=== PATIENT | female | born 1945 | race Two or more races ===

== ENCOUNTER 2018-09-27 19:50 | Emergency (ER) | payer OTHER ==
[~2018-09-27] VITALS: Ht 154.9 cm; Wt 73.5 kg
[~2018-09-27 19:50] MED LIST: SURFAK240 M1 PO; ULTRACET PO
[2018-09-27] MEDS ORDERED: TOPROL XL25 M1 PO (20:20)
[2018-09-27] MEDS ORDERED: COZAAR25 MG PO (20:20)
[2018-09-27] MEDS ORDERED: FORTAMET500 MG PO (20:20)
[2018-09-27] MEDS ORDERED: FOLIC ACID1 MG PO (20:21)
[2018-09-27] MEDS ORDERED: ZOCOR20 MG PO (20:21)
== END 2018-09-27 22:50 | disposition home or self-care (01) ==
LOC: ER 19:50
DX: M54.5 Low back pain (principal)

== ENCOUNTER 2020-09-08 09:38 | Day surgery (SDC) | payer OTHER ==
[~2020-09-08 09:38] MED LIST changes: +COZAAR25 MG PO; +FOLIC ACID1 MG PO; +FORTAMET500 MG PO; +TOPROL XL25 M1 PO; +ZOCOR20 MG PO
== END 2020-09-08 13:40 | disposition home or self-care (01) ==
LOC: AMB-ENDOS 09:38
PROVIDERS: ATTEND Surgery
DX: K62.1 Rectal polyp (principal); Z20.822 Contact with and (suspected) exposure to COVID-19

== ENCOUNTER 2021-10-29 07:04 | Emergency (ER) | payer OTHER ==
[~2021-10-29] VITALS: Ht 154.9 cm; Wt 67.1 kg
== END 2021-10-29 13:20 | disposition home or self-care (01) ==
LOC: ER 07:04
DX: M79.605 Pain in left leg (principal); R20.0 Anesthesia of skin; R20.2 Paresthesia of skin; E11.9 Type 2 diabetes mellitus without complications; Z79.84 Long term (current) use of oral hypoglycemic drugs; I10 Essential (primary) hypertension

== ENCOUNTER 2022-10-12 07:10 | Outpatient (CLI) | payer OTHER | END 2022-10-12 07:22 | disposition home or self-care (01) | LOC: TOM 07:10 | PROVIDERS: ATTEND Surgery | DX: K57.90 Diverticulosis of intestine, part unspecified, without perforation or abscess without bleeding (principal); Z12.11 Encounter for screening for malignant neoplasm of colon ==

== ENCOUNTER 2024-10-10 10:10 | Outpatient (CLI) | payer OTHER ==
[2024-10-10 11:43] LABS: ALT/SGPT 37.0 U/L (12-78); AST/SGOT 27.0 U/L (15-37); BILIRUBIN TOTAL 0.58 mg/dL (0.3-1.2); BUN CREA RATIO 22.0 (7.0-25.0); CREATININE SERUM 1.08 mg/dL (0.55-1.02); GFR 49.06; GLOBULINA 3.6 G/DL (2.4-3.5); GLUCOSE FASTING 129.0 mg/dL (65-100); OSMOLALITY SERUM 291.0 MOSM/KG (275-295)
[2024-10-11 13:08] LABS: CALCIUM IONIZED 5.1 mg/dL (4.5-5.6)
== END 2024-10-10 10:15 | disposition home or self-care (01) ==
LOC: LAB 10:10
PROVIDERS: ATTEND Orthopaedic Surgery
DX: E55.9 Vitamin D deficiency, unspecified (principal); M85.9 Disorder of bone density and structure, unspecified; E56.1 Deficiency of vitamin K; E21.3 Hyperparathyroidism, unspecified; E88.89 Other specified metabolic disorders; M81.8 Other osteoporosis without current pathological fracture

== ENCOUNTER 2024-10-30 09:25 | Outpatient (CLI) | payer OTHER | END 2024-10-30 09:26 | disposition home or self-care (01) | LOC: NUCLEAR 09:25 | PROVIDERS: ATTEND Orthopaedic Surgery | DX: M81.0 Age-related osteoporosis without current pathological fracture (principal) ==